=== PATIENT | female | born 2000 | race Caucasian/White ===

== ENCOUNTER 2024-05-19 09:35 | Emergency (ER) | payer OTHER, SELFPAY ==
--- NOTE | ~2024-05-19 | CT_ITS ---
CT brain wo con Ordering provider: Orin Louis PA-C History: 23 years Female with . fall, hi . Comparison: None. Technique: CT of the head without contrast. Radiation reduction technique utilized.The dose-length product was 605.33 mGy-cm 11 6 cm. FINDINGS:: BRAIN PARENCHYMA AND CSF SPACES: No midline shift, mass effect or hemorrhage. The brain parenchyma a nd CSF spaces are otherwise normal. VISUALIZED PARANASAL SINUSES: Mild bilateral ethmoid sinus disease.. MASTOIDS: Well aerated. BONES: The bones appear intact. SOFT TISSUES: Visualized nasopharynx is normal. Superficial soft tissues are normal. IMPRESSION: No acute intracranial findings. Reviewed, dictated and finalized at location A.
--- NOTE | ~2024-05-19 | US_ITS ---
FIRST TRIMESTER ULTRASOUND 05/19/2024 9:56 CDT Ordering provider: Orin Louis PA-C History: . 11 weeks, fall/trauma . Comparison: None. FINDINGS: INTRAUTERINE GESTATIONAL SAC: Present. YOLK SAC: Present. POLE: Present. Measures 4.1 cm which is equivalent to 11 weeks gestational age.. heart rate is 167 bpm. Maternal left placenta is noted. Subchorionic hematoma is seen. IMPRESSION: Single live fetus. pole measures 4.1 cm Gestational age is 11 weeks. heart rate is 167. Subchorionic hematoma is noted. Follow-up advised. Reviewed, dictated and finalized at location A.
[2024-05-19 09:41] VITALS: BP 145/83; PULSE 97; RESP 16; TEMP 36.7; O2SAT 100
--- NOTE | 2024-05-19 10:08 | ED.FALL ---
HPI - Fall General Chief Complaint: Fall Stated Complaint: 11 weeks fell, hit head. No LOC Time Seen by Provider: 05/19/24 09:45 Source: patient Mode of arrival: ambulatory Limitations: no limitations History of Present Illness HPI Narrative: Patient is a 23-year-old female who presents the ED with report of a fall. Patient reports she slipped walking down her stairs this morning in the rain. Fell to her right-side and hit her head. She did not lose consciousness. Attempted to catch herself with her R arm. Reports mild LEAVITT currently. Denies dizziness/LH, nausea, vision changes, neck or back pain, arm pain. Patient is currently 11 weeks gestation. OBGYN is Lupe Pablo with [facility]. states she was referred to the ED for further evaluation to ensure her baby is okay. Patient denies direct abdominal trauma. Denies abdominal pain. Denies vaginal bleeding. Related Data Allergies Allergy/AdvReac Type Severity Reaction Status Date / Time montelukast [From Singulair] Allergy Hives Verified 05/19/24 10:24 Review of Systems Review of Systems: All systems reviewed & are unremarkable except as noted in HPI. All systems reviewed & are unremarkable except as noted in HPI and below Exam Narrative: GENERAL: Well appearing, thin, non-toxic, in no acute distress. HEAD: Normocephalic, atraumatic. NECK: Supple. No significant tenderness throughout midline spine or paraspinal musculature. No palpable deformities. RESPIRATORY: Airway patent, respirations nonlabored. Clear to auscultation bilaterally, no rales, rhonchi, wheezing. CARDIOVASCULAR: Regular rate and rhythm ABDOMINAL: Soft, no appreciable tenderness throughout abdomen, nondistended. Normoactive BS. MUSCULOSKELETAL: Moves all extremities. No gross deformities. No TTP throughout midline lumbar or thoracic spine. No palpable deformities. SKIN: Warm, dry, normal color. NEURO: A&O X3. Speech clear. Cranial nerves II-XII grossly intact. Steady gait. No ataxic movements. PSYCHIATRIC: Appropriate mood and affect. Normal interaction. Course Vital Signs Vital signs: Vital Signs Temperature 98.1 F 05/19/24 09:41 Pulse Rate 97 05/19/24 09:41 Respiratory Rate 16 05/19/24 09:41 Blood Pressure 145/83 H 05/19/24 09:41 Pulse Oximetry 100 05/19/24 09:41 Oxygen Delivery Room Air 05/19/24 09:41 Temperature 97.9 F 05/19/24 10:55 Pulse Rate 69 05/19/24 10:55 Respiratory Rate 17 05/19/24 10:55 Blood Pressure 119/73 05/19/24 10:55 Pulse Oximetry 100 05/19/24 10:55 Oxygen Delivery Room Air 05/19/24 09:41 MDM - Fall MDM Narrative Medical decision making narrative: patient presented to ED status post ground level mechanical fall, head injury. Patient currently 11 weeks gestation. Referred here by OBGYN. Denying abdominal pain or vaginal bleeding. Vital signs are stable. Patient neurologically intact. C-spine cleared by myself in the ED. No neck pain or tenderness whatsoever. CT brain obtained and negative for acute traumatic findings. OB ultrasound was obtained and showing live IUP, consistent with 11 weeks, good heart tones. Does show subchorionic hematoma. Unclear is this has been present prior to today. No previous ultrasounds for comparison. Patient is denying vaginal bleeding. Discussed case with Dr. 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 Patient to follow-up in office. Patient in agreement w/ this plan. Feels comfortable w/ discharge home. She was given return precautions, discussed signs and symptoms of hematoma/reasons to be concerned. Patient voiced understanding. Discharged in stable condition. Medical Records Attestation: I reviewed the patient's medical records. Imaging Data Attestation: I personally reviewed and interpreted this imaging study as follows: Radiologist's impression: ITS Impressions Head CT 05/19/24 10:18 IMPRESSION: No acute intracranial find
[2024-05-19 10:55] VITALS: BP 119/73; PULSE 69; RESP 17; TEMP 36.6; O2SAT 100
== END 2024-05-19 10:57 | disposition home or self-care (01) ==
PROVIDERS: Emergency Provider Physician Assistant; PCP Internal Medicine
DX: O26.891 Other specified pregnancy related conditions, first trimester (principal); S09.90XA Unspecified injury of head, initial encounter; O41.8X10 Other specified disorders of amniotic fluid and membranes, first trimester, not applicable or unspecified; W10.9XXA Fall (on) (from) unspecified stairs and steps, initial encounter; Z3A.11 11 weeks gestation of pregnancy
CPT/HCPCS: 70450; 76816; 99284

== ENCOUNTER 2024-07-11 10:24 | Outpatient (CLI) | payer OTHER, SELFPAY ==
[2024-07-11 10:57] VITALS: BP 107/48; PULSE 83
--- NOTE | 2024-07-11 12:24 | PC.NURSE ---
Called Julissa Pablo CNM with pt admission. Pt complaining of leaking of fluid. ROM plus negative. No fluid noted. FHTs doppled in 140's. Pt states that she feels some lower, constant back pain. She felt cramping yesterday and this am, but nothing currently. May D/C home.
[2024-07-14 10:02] LABS: OBXCEM ROM Plus Negative (Negative)
== END 2024-07-11 11:27 | disposition home or self-care (01) ==
LOC: ANHOBOP 10:33 → ANHOBPP 07-16 07:56
PROVIDERS: Advanced Practice Midwife; PCP Internal Medicine; Visit Provider Obstetrics & Gynecology
DX: O42.90 Premature rupture of membranes, unspecified as to length of time between rupture and onset of labor, unspecified weeks of gestation (principal); Z3A.00 Weeks of gestation of pregnancy not specified
CPT/HCPCS: 84112; 99199

== ENCOUNTER 2024-10-07 06:45 | Observation (INO) | payer MEDICAID, OTHER, SELFPAY ==
[2024-10-07] VITALS (10 sets, daily range): BP systolic 112–122; BP diastolic 49–69; PULSE 85–101; TEMP 37; BMI 24.0
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
--- OUTSIDE RECORDS SUMMARY | 2024-10-07 07:05 | XMS_ITS | Referral Summary ---
Author Organization [facility] Address [address] [place] [address] Care Team Providers Care Video Production Intern Name Role Phone No, Physician Primary Care Provider [phone] Allergies Active Allergy Reactions Criticality Noted Date Comments Montelukast Hives Medium Medications PNV 39-iron obx-xdidx-sdw-dha 30 mg iron-1.2 mg-55 mg-265 mg capsule Take by mouth daily Active budesonide-formote roL (SYMBICORT) 80-4.5 mcg/actuation inhalerIndications :Maintenance Therapy for Asthma Inhale 2 puffs 2 (two) times a day Rinse mouth with water after use. Do not swallow. Active HYDROcodone-acetam inophen (NORCO) 5-325 mg per tabletIndications: Pain Take 1 tablet by mouth every 4 (four) hours as needed for pain 20 tablet 01/08/20 20 Active ibuprofen (ADVIL,MOTRIN) 600 mg tabletIndications: Cramps Take 1 tablet (600 mg total) by mouth every 6 (six) hours as needed for pain 30 tablet 1 01/08/20 20 Active albuterol HFA (PROVENTIL HFA,VENTOLIN HFA,PROAIR HFA) 90 mcg/actuation inhaler Inhale 2 puffs every 4 (four) hours as needed for wheezing or shortness of breath 1 each 10/13/19 22 Active albuterol 5 mg/mL nebulizer solution Take 0.5 mL (2.5 mg total) by nebulization every 6 (six) hours as needed for wheezing 20 mL 10/13/19 22 Active ondansetron ODT (ZOFRAN-ODT) 4 mg disintegrating tablet Take 1 tablet (4 mg total) by mouth every 8 (eight) hours as needed for nausea or vomiting 20 tablet 10/13/19 22 Active Active Problems Problem Noted Date Diagnosed Date Sprain of wrist 12/09/2014 Overview (12/07/2016): Wrist sprain Social History Tobacco Use Types Packs/Day Years Used Date Smoking Tobacco: Some Days Cigarettes 0.2 3 Smokeless Tobacco: Never Tobacco Cessation:Ready to Q uit: Yes; Counseling Given: Yes Alcohol Use Standard Drinks/Week Comments Not Currently 0 (1 standard drink = 0.6 oz pur e alcohol) AUDIT-C Answer Date Recorded Frequency of Alcohol Consumption Never 10/13/2019 Average Number of Drinks Not on file 020 Frequency of Binge Drinking Not on file 09/27 Comments Unknown Sex and Gender Information Value Date Recorded Sex Assigned at Not on file Legal Sex Female 3:37 AM RENTAL COUNTER CLERK Gender Identity Not on file Sexual Orientation Not on file Last Filed Vital Signs Vital Sign Reading Time Taken Comments Blood Pressure 115/71 12/18/2022 6:49 AM CDT Pulse 74 12/18/2022 6:49 AM CDT Temperature 36.1 C (97 F) 12/18/2022 6:49 AM CDT Respiratory Rate 18 12/18/2022 6:49 AM CDT Oxygen Saturation 100% 12/18/2022 6:49 AM CDT Inhaled Oxygen Concentration - - Weight 49.9 kg (110 lb) 12/18/2022 6:49 AM CDT Height 157.5 cm (5' 2 ) 08/24/2022 2:31 PM RENTAL COUNTER CLERK Body Mass Index 20.12 08/24/2022 2:31 PM RENTAL COUNTER CLERK Plan of Treatment Not on file Insurance [facility] Advance Directives For more information, please contact: [phone] * Full Code (Latest Code Status on File) Date Activated Date Inactivated Comments 01/06/2020 4:57 PM 01/08/2020 4:27 PM * Full Code Date Activated Date Inactivated Comments 01/06/2020 8:29 AM 01/06/2020 4:56 PM Full CPR in case of cardiopulmonary arrest Care Teams Video Production Intern Relationship Specialty Start Date End Date No, Physician PCP - General 10/24/19
--- OUTSIDE RECORDS SUMMARY | 2024-10-07 07:05 | XMS_ITS | Clinical Summary ---
Author Organization [facility] Address [address] [place] [address] Care Team Providers Care Therapy Site Coordinator Name Role Phone No, Physician Primary Care Provider [phone] Allergies Active Allergy Reactions Criticality Noted Date Comments Montelukast Hives Medium Medications PNV 39-iron [id number]-[id number]-rhe-[id number] 30 mg iron-1.2 mg-55 mg-265 mg capsule [...] of wrist 12/09/2014 Overview (12/07/2016): Wrist sprain Medical History Medical History Date Comments Asthma Asthma Mental disorder anxiety Lung disease asthma Family History Medical History Relation Name Comments Cancer Other 1 Family history of cancer; Diabetes Other 2 Family history of diabetes; Hypertension Other 3 Family history of Hypertension; Mental illness Other 4 Family histor y of Mental illness; Arthritis Other 5 Family history of arthritis; Relation Name Status Comments Other 1 Other 2 Other 3 Other 4 Other 5 Social History Tobacco Use Types Packs/Day Years [...] on file Legal Sex Female 3:37 AM CLASSIFIED AD CLERK Gender Identity Not on file Sexual Orientation Not on file Obstetrics History Para Term AB IAB SAB Ectopic Multiple Livin g Live Births 1 1 1 0 1 1 Date Outcome GA Total Labor Labor/2nd/3rd Weight Sex Type Anes PTL Jennifer A1 A5 Name Clin 2019 Term 39w 4d 4h 23m 3h 00m/1h 10m/0h 13m 3.115 kg (6 lb 13.9 oz) M Vag-S pont Epidur al N Livin g 7 8 Courtney CLAROS Geoffr ey Lowell, MD Complications:None Delivery Location:This Facil ity ([facility] Last Filed Vital Signs Vital Sign Reading [...] cm (5' 2 ) 08/24/2022 2:31 PM CLASSIFIED AD CLERK Body Mass Index 20.12 08/24/2022 2:31 PM CLASSIFIED AD CLERK Plan of Treatment Health Maintenance Due Date Last Done Comments Cervical Cancer Screening 2001 Chlamydia and Gonorrhea (GC/ CT) Screening 2001 Depression Screening 2001 Hepatitis C Screening 2001 Pneumococcal vaccine <65 (1 of 1 - PPSV23 or PCV20) 2007 06/10/2003, 06/10/2003, 04/18/2002, Additional history exists Meningococcal B Vaccine (1 o f 2 - Patient Seeks Protection) 2017 Regular Well Visit/Exam 18-64 2019 Influenza Vaccine (#1) 2024 DTaP/Tdap/Td Vaccine (9 - Td or Tdap) 12/18/2029 12/19/2019, 10/09/2013, 02/06/2013, Additional history exists Hepatitis B Screening Completed 06/10/2003 , 06/10/2003, 02/15/2002, Additional history exists HPV Vaccines Completed 10/09/2013, 06/27, 02/06/2013 Varicella Vaccines Completed 10/09/2013, 04/20/[address] [place] [address] [place] [address] [facility] Advance Directives For more information, please contact: [phone] * Full Code (Latest Code Status on File) Date Activated Date Inactivated Comments 01/06/2020 4:57 PM 01/08/2020 4:27 PM * Full Code Date Activated Date Inactivated Comments 01/06/2020 8:29 AM 01/06/2020 4:56 PM Full CPR in case of cardiopulmonary arrest Care Teams Therapy Site Coordinator Relationship Specialty Start Date End Date No, Physician PCP - General 10/24/19
--- OUTSIDE RECORDS SUMMARY | 2024-10-07 07:06 | XMS_ITS | Patient Health Summary ---
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 the cervical spine without contrast HISTORY: Trauma TECHNIQUE: CT of the head, cervical spine, and maxillofacial bones, orbits, and paranasal sinuses was performed without contrast according to standard protocol. COMPARISON: None FINDINGS: Head: No acute intra- or extra-axial fluid collections are identified. The ventricles are of normal size, shape, and morphology. The basilar cisterns are patent. No mass effect or midline shift is seen. The horner-white matter differentiation is normal. No acute calvarial fracture is identified. Maxillofacial: The orbits appear normal. There is mild paranasal sinus disease. The hard palate, mandible, and temporomandibular joints appear normal. No acute facial bone fractures are identified. The mastoid air cells are clear. Mild soft tissue edema overlying the left parietal scalp. Cervical spine: The alignment is normal. Vertebral bodies are normal in height without evidence of acute fracture. There is an acute, nondisplaced fracture of the left posterior second rib. The craniocervical junction is normal. The intervertebral discs appear normal. No central canal stenosis is seen. The facets appear normal. The uncovertebral joints appear normal. No neural foraminal stenosis is seen. No soft tissue abnormality is identified. Procedure Note Shayne Dixon MD - 05/17/2023 CT HEAD WO CONTRAST, CT FACIAL BONES WO CONTRAST, CT CERVICAL SPINE WO CONTRAST DATE: 05/16/2023 11:46 PM EXAMINATION: 1. Computed tomography (CT) of the head without contrast 2. CT of the maxillofacial bones, orbits, and paranasal sinuses without contrast 3. CT of the cervical spine without contrast HISTORY: Trauma TECHNIQUE: CT of the head, cervical spine, and maxillofacial bones,orbits, and paranasal sinuses was performed without contrast according tostandard protocol. COMPARISON: None FINDINGS: Head: No acute intra- or extra-axial fluid collections are identified. The ventricles are of normal size, shape, and morphology. The basilarcisterns are patent. No mass effect or midline shift is seen. The horner-whitematter differentiation is normal. No acute calvarial fracture is identified. Maxillofacial: The orbits appear normal. There is mild paranasal sinus disease. Thehard palate, mandible, and temporomandibular joints appear normal. No acute facial bone fractures are identified. The mastoid air cells are clear.Mild soft tissue edema overlying the left parietal scalp. Cervical spine: The alignment is normal. Vertebral bodies are normal in height without evidence of acute fracture. There is an acute, nondisplaced fracture ofthe left posterior second rib. The craniocervical junction is normal. The intervertebral discs appear normal. No central canal stenosis is seen.The facets appear normal. The uncovertebral joints appear normal. No neural foraminal stenosis is seen. No soft tissue abnormality is identified. IMPRESSION: 1.No acute intracranial process. 2.Soft tissue swelling over the left parietal scalp without evidence of underlying calvarial fracture. 3.No acute facial bone fractures identified. 4.Acute, nondisplaced fracture of the left posterior second rib. 5.No evidence of acute fracture in the cervical spine. Report dictated by Roque Urbina M.D. (vice president compliance) 05/17/2023 12:23 AM Shayne Liu MD have personally reviewed and interpreted this examination/study. > Interpreting Provider: Shayne Dixon MD on 05/17/2023 12:26 AM Bernabe Brandon MD CT ORDERABLES * XR PELVIS 1 OR 2VW (05/16/2023 11:14 PM CDT) Anatomical Region Laterality Modality Pelvis Radiographic Paulina ging 05/16/2023 11:0 7 PM CDT Impressions 05/16/2023 11:37 PM CDT IMPRESSION: No acute fracture identified. Report dictated by Roque Urbina MD (vice president compliance). Rui Liu MD have personally reviewed and interpreted this examination/study. > Interpreting Provider: Rui Quarles MD on 05/16/2023 11:37 PM Narrative 05/16/2023 11:37 PM CDT PROCEDURE: XR PELVIS 1 OR 2VW, DATE/TIME OF EXAM: 05/16/2023 11:03 PM, LOCATION [facility] INDICATION: Trauma Fracture suspected COMPARISON: None. FINDINGS: No acute fracture is identified. The femoral heads appear well-seated within their respective acetabula. The pubic symphysis is intact. Bone density and texture are normal. The sacroiliac joints are normal. Procedure Note Rui Quarles MD - 05/16/2023 PROCEDURE: XR PELVIS 1 OR 2VW, DATE/TIME OF EXAM: 05/16/2023 11:03 PM, LOCATION [facility] INDICATION: Trauma Fracture suspected COMPARISON: None. FINDINGS: No acute fracture is identified. The femoral heads appear well-seated within their respective acetabula. The pubic symphysis is intact. Bone density and texture are normal. The sacroiliac joints are normal. IMPRESSION: No acute fracture identified. Report dictated by Roque Urbina MD (vice president compliance). Rui Liu MD have personally reviewed and interpreted this examination/study. > Interpreting Provider: Rui Quarles MD on 05/16/2023 11:37 PM Bernabe Brandon MD DIAGNOSTIC IMAGING O RDERABLES * XR CHEST 1VW PORTABLE (05/16/2023 11:14 PM CDT) Anatomical Region Laterality Modality Chest Radiographic Paulina ging 05/16/2023 11:0 6 PM CDT Impressions 05/16/2023 11:37 PM CDT IMPRESSION: No acute pulmonary process. Report dictated by Roque Urbina MD (vice president compliance). Rui Liu MD have personally reviewed and interpreted this examination/study. > Interpreting Provider: Rui Quarles MD on 05/16/2023 11:37 PM Narrative 05/16/2023 11:37 PM CDT PROCEDURE: XR CHEST 1VW PORTABLE, DATE/TIME OF EXAM: 05/16/2023 10:59 PM, LOCATION [facility] INDICATION: Trauma COMPARISON: None. TECHNIQUE: Frontal radiograph of the chest. FINDINGS: There is no focal consolidation, pleural effusion, or pneumothorax. The cardiomediastinal silhouette is normal. The visible bony thorax is intact. Procedure Note Rui Quarles MD - 05/16/2023 PROCEDURE: XR CHEST 1VW PORTABLE, DATE/TIME OF EXAM: 05/16/2023 10:59PM, LOCATION [facility] INDICATION: Trauma COMPARISON: None. TECHNIQUE: Frontal radiograph of the chest. FINDINGS: There is no focal consolidation, pleural effusion, or pneumothorax. The cardiomediastinal silhouette is normal. The visible bony thorax is intact. IMPRESSION: No acute pulmonary process. Report dictated by Roque Urbina MD (vice president compliance). IRui MD have personally reviewed and interpreted this examination/study. > Interpreting Provider: Rui Quarles MD on 05/16/2023 11:37 PM Bernabe Brandon MD DIAGNOSTIC IMAGING O RDERABLES * PT-INR [facility] (05/16/2023 11:01 PM CDT) PT 13.2 12.1 - 14.8 Seconds 05/16/2023 11:33 PM CDT [facility] INR 1.0 See Comment 05/16/2023 11:33 PM CDT [facility] Comment:The suggested therap eutic range for standard coumadin (warfarin) therapy is an INR of 2.0-3.0. For high-risk patients (Mechanical Mitral Valve Prosthesis, etc.), the suggested prophylactic therapeutic range is an INR of 2.5-3.5. Blood BLOOD SPECIMEN / Unknown Venipuncture / Unknown 05/16/2023 11:01 PM CDT 05/16/2023 11:11 PM CDT Bernabe Brandon MD LAB - COAGULATION OR DERABLES [facility] [address] [place] [address], [facility] [phone] * TYPE + SCREEN PANEL (05/16/2023 11:01 PM CDT) Antibody Screen NEG 12:25 AM CDT [facility] ABO Rh A POS 05/17/2023 12:25 AM CDT [facility] Blood Bank BLOOD SPECIMEN / Unknown Venipuncture / Unknown 05/16/2023 11:01 PM CDT 05/16/2023 11:37 PM CDT Bernabe Brandon MD LAB - BLOOD BANK ORD ERABLES [facility] [address] [place] [address], [facility] [phone] * (ABNORMAL) DIFFERENTIAL MANUAL (05/16/2023 11:01 PM CDT) Pathologist [facility] WBC (corrected for NRBC) 13.3 10 3/uL 05/17/2023 12:58 AM [facility] Total Cell Count 100 05/17/20 12:58 AM [facility] Neutrophils Absolute Manual 7.18(H) 1.60 - 7.00 10 3/uL 05/17/2023 12:58 AM [facility] Comment:(BANDS+SEGS) x WBC = NEUT # (ANC) Lymphocyte Absolute Manual 4.66(H) 1.10 - 3.90 10 3/uL 05/17/2023 12:58 AM [facility] Monocytes Absolute Manual 0.80 0.26 - 1.07 10 3/uL 05/17/2023 12:58 AM [facility] Eosinophils Absolute Manual 0.27 0.00 - 0.47 10 3/uL 05/17/2023 12:58 AM [facility] Basophil Absolute Manual 0.27(H) 0.00 - 0.08 10 3/uL 05/17/2023 12:58 AM [facility] Band % Manual 1 0 - 10 % 05/17/2023 12:58 AM [facility] Neutrophil % Manual 53 35 - 70 % 05/17/2023 12:58 AM CDT [facility] Lymphocyte % Manual 35 20 - 43 % 05/17/2023 12:58 AM T [facility] Monocytes % Manual 6 5 - 13 % 05/17/2023 12:58 AM [facility] Eosinophils % Manual 2 0 - 6 % 05/17/2023 12:58 AM [facility] Basophils % Manual 2 0 - 2 % 05/17/2023 12:58 AM [facility] Atypical Lymphocyte % Manual 1(H) 0 % 05/17/2023 12:58 AM [facility] Platelet Estimate Adequate Adequate 05/17/2023 12:58 AM [facility] Anisocytosis Occasional( A) None 05/17/2023 12:58 AM [facility] Ovalocytes Occasional( A) None 05/17/2023 12:58 AM [facility] Angel Luis Cells Occasional( A) None 05/17/2023 12:58 AM [facility] Blood BLOOD SPECIMEN / Unknown Venipuncture / Unknown 05/16/2023 11:01 PM CDT 05/16/2023 11:11 PM CDT Bernabe Brandon MD LAB - HEMATOLOGY ORD ERABLES [facility] [address] [place] [address], [facility] [phone] * HCG BETA BLOOD QUANTITATIVE (05/16/2023 11:01 PM CDT) Beta-hCG Total Quantitative <3 mIU/mL 05/16/2023 11:49 PM T [facility] Comment: HCG Numeric Result Interpretation: Non- Females: < 5 mIU/mL Post-Menopausal Females: < 7 mIU/mL This assay is cleared for use in the early detection of only. It is not approved for any other uses such as tumor marker screening, tumor marker monitoring, etc. and should not be used for any other purposes. Blood BLOOD SPECIMEN / Unknown Venipuncture / Unknown 05/16/2023 11:01 PM CDT 05/16/2023 11:11 PM CDT Bernabe Brandon MD LAB - CHEMISTRY TALHA ALMENDAREZ Performing Organization Address [facility] Co de Phone Number [address] [address], [facility] [phone] * (ABNORMAL) ALCOHOL ETHYL BLOOD (05/16/2023 11:01 PM CDT) Ethanol (mg/dL) 163(H) <10 mg/dL 11:40 PM CDT [facility] Ethanol Calculated (g/dL) 0.163(H) <=0.010 g/dL 05/16/2023 11:40 PM CDT [facility] Blood BLOOD SPECIMEN / Unknown Venipuncture / Unknown 05/16/2023 11:01 PM CDT 05/16/2023 11:11 PM CDT Narrative [facility] - 05/16/2023 11:40 PM CDT Ethanol Interp <10: None Detected. Depression of BAKING POWDER MIXER: >100 mg/dl Potentially Critical: >250 mg/dl Potentially Fatal >400 mg/dl Ethanol in the patient's blood will contribute to the osmolar gap. Ethanol's contribution to the osmolar gap can be estimated by dividing the concentration of ethanol in mg/dL by 4.6. This test is for clinical use only and does not equal a YEISON for legal purposes. Bernabe Brandon MD LAB - CHEMISTRY TALHA ALMENDAREZ Performing Organization Address [facility] Co de Phone Number [address] [address], [facility] [phone] * (ABNORMAL) CULTURE ABSCESS+GRAM STAIN (12/04/2017 12:20 AM CDT) Culture Moderate Streptococcus pyogenes (Group A)(A) AVRIL 12/06/2017 6:28 AM CDT [facility] Gram Stain Heavy White blood cells 12/06/2017 6:28 AM CDT [facility] Gram Stain Moderate Gram-positive cocci pairs and chains 12/06/2017 6:28 AM CDT [facility] Microbiology SPECIMEN FROM ABSCESS / Unknown Collection / Unknown 12/04/2017 12:20 AM CDT 12/04/2017 12:22 AM CDT Narrative [facility] - 12/06/2017 6:28 AM CDT Contact Precautions Required. Susceptibility testing of penicillin, other beta-lactam antibiotics, and vancomycin is not necessary for beta-hemolytic streptococci groups A,B,C and G because resistant strains have not been recognized. Kaylah Balderrama MD LAB - MICROBIOLOGY ORDERABLES Performing Organization Address City/[facility]/ZIP Co de Phone Number [facility] [address] [place], [place] [address] [phone] * (ABNORMAL) STREP A SCREEN DIRECT W RFLX STREP A CULTURE (12/03/2017 10:07 PM CDT) Only the most recent of3 resultswithin the time period is included. Strep A Rapid Positive(A ) Negative 12/03/2017 10:27 PM CDT [facility] Microbiology ENTIRE THROAT (SURFACE REGION OF NECK) / Unknown Collection / Unknown 12/03/2017 10:07 PM CDT 12/03/2017 10:17 PM CDT Shaheen York MD LAB - MICROBIOLOGY O LIZ Performing Organization Address City/[facility]/ZIP Co de Phone Number [facility] [address] [place] [phone] * XR KNEE 1 OR 2 VW LEFT (10/22/2017 3:22 AM SENIOR SUPPLY CHAIN ANALYST) Anatomical Region Laterality Modality Lower Extremity Radiographic Paulina ging 10/22/2017 7:21 AM SENIOR SUPPLY CHAIN ANALYST Impressions 10/22/2017 7:22 AM SENIOR SUPPLY CHAIN ANALYST Normal. Narrative 10/22/2017 7:22 AM SENIOR SUPPLY CHAIN ANALYST Left knee AP and lateral HISTORY: Fall The bones, soft tissues, and joint spaces are normal. Procedure Note Marisa Flower MD - 10/22/2017 Left knee AP and lateral HISTORY: Fall The bones, soft tissues, and joint spaces are normal. IMPRESSION Normal. Nikunj Rutledge MD DIAGNOSTIC IMAGING O LIZ * HCG URINE QUALITATIVE - POCT (IP) BEAKER (10/22/2017 3:11 AM SENIOR SUPPLY CHAIN ANALYST) HCG Qual Urine Negative Negative [facility] POCT TESTING QC Verified Yes Yes [facility] PO CT TESTING Urine URINE / Unknown 10/22/2017 3 :11 AM SENIOR SUPPLY CHAIN ANALYST Nikunj Rutledge MD LAB - POINT OF CARE ORDERABLES Performing Organization Address [facility]/ZIP Co de Phone Number [facility] POCT TESTING [address] [place] [address], [facility] [phone] * CULTURE STREP GROUP A (05/28/2017 5:14 PM CDT) Culture Negative for beta-hemolytic Streptococcus Group A AVRIL 05/30/2017 6:24 AM CDT [facility] Microbiology ENTIRE THROAT (SURFACE REGION OF NECK) / Unknown Collection / Unknown 05/28/2017 5:14 PM CDT 05/28/2017 5:17 PM CDT Madisyn Ames APRN-TACTICAL AIR CONTROL PARTY MANAGER LAB - MICROBIOLOGY ORDERABLES Performing Organization Address City/[facility] Co de Phone Number [facility] [address] [place] [address], [facility] [phone] * XR HAND 3+ VW LEFT (10/12/2016 2:10 PM SENIOR SUPPLY CHAIN ANALYST) Anatomical Region Laterality Modality Wrist / Hand Radiographic Paulina ging 10/12/2016 3:05 PM SENIOR SUPPLY CHAIN ANALYST Impressions 10/12/2016 3:07 PM SENIOR SUPPLY CHAIN ANALYST No recent fracture or other abnormality of the left hand identified. Narrative 10/12/2016 3:07 PM SENIOR SUPPLY CHAIN ANALYST Left hand: History: Fall, injury with left hand pain, attention 3rd and 4th digits. Technique: Three views of the left hand were obtained on 10/12/2016. No relevant prior study is available. Findings: No recent fracture, dislocation or bone destruction is seen. Procedure Note Cleveland Henderson MD - 10/12/2016 Left hand: History: Fall, injury with left hand pain, attention 3rd and 4th digits. Technique: Three views of the left hand were obtained on 10/12/2016. No relevant prior study is available. Findings: No recent fracture, dislocation or bone destruction is seen. IMPRESSION No recent fracture or other abnormality of the left hand identified. Eric Scanlon PA-C DIAGNOSTIC IM AGING ORDERABLES Care Teams Sport Intern Relationship Specialty Start Date End Date Jolly Madrigal, INVESTMENT ADVISOR-TACTICAL AIR CONTROL PARTY MANAGER [address] [place] [address] PCP - General 06/05/24 Shaheen Ching MD [address] [place] [address] 06/05/24
--- OUTSIDE RECORDS SUMMARY | 2024-10-07 07:06 | XMS_ITS | Clinical Summary ---
Author Organization [facility] [employer] Address [address] [facility] [place] [address] Care Team Providers Care Supervisor Paper Machine Name Role Phone [employer] Jolly Luna RN VISITING-GROUND CREWMAN Primary Care Provi tristen Shaheen Ching MD Unavailable Source Comments [facility],non-owned Affiliates and Associated Physician Practices is amultiple site organization consisting of ambulatory clinics and hospital sitesin [place], [place] and [place]. This disclosure is being madepursuant to the Care Everywhere program and may not contain all information available regarding this patient. Last updated 18.[facility] Allergies Active Allergy Reactions Criticality Noted Date [...] per patient. She follows with psychiatrist @ [facility] every 2-3 months. This provider prescribes [...] on last me nstrual period of 03/04/2024 Encounters Date Type Department Care Team Description 09/30/2024 12:00 PM BILINGUAL TEACHER visit [facility] - assembly machine tender [address] [place] [address] Nereida Richey MD GA: [id number] 09/30/2024 8:40 AM BILINGUAL TEACHER Ancillary Procedure [facility] - CHAINSTITCH SEWING MACHINE OPERATOR [address] [place] [phone] Encounter for ultrasound to check growth (HCC) 09/30/2024 Travel 09/12/2024 Telephone [facility] - CHAINSTITCH SEWING MACHINE OPERATOR [address] [place] [phone] Marcelle Peck RN Establish Care 09/09/2024 10:30 AM BILINGUAL TEACHER - 09/09/2024 11:59 PM BILINGUAL TEACHER Hospital Encounter [facility] [address] [id number] Anyi Mercado MD Grant, Jacqueline H, MD CHAINSTITCH SEWING MACHINE OPERATOR Discharge Disposition: Home or Self Care 08/12/2024 9:40 AM BILINGUAL TEACHER - 08/12/2024 11:59 PM BILINGUAL TEACHER Hospital Encounter [facility] [address] [place] [address] Won Thompson MD Discharge Disposition: Home or Self Care 07/15/2024 9:37 AM BILINGUAL TEACHER - 07/15/2024 11:59 PM BILINGUAL TEACHER Hospital Encounter [facility] [address] [place] [address] MD Discharge Disposition: Home or Self Care from Last 3 Months Immunizations Name Administration Dates Next Due TDAP (7yrs+) 09/30/2024,05/17/2023,12/19/2019 Family History Medical History Relation Name Comments Anxiety Disorder Father Anxiety Disorder Maternal Grandmother Anxiety Disorder Mother Bipolar Disorder Mother Relation Name Status Comments Brother Alive Father Alive Maternal Grandmother Mother Alive Sister Alive Social History Tobacco Use Types Packs/Day Years [...] Comments Blood Pressure 104/50 09/30/2024 12:22 PM BILINGUAL TEACHER Pulse 89 06/18/2024 2:03 PM CDT Temperature 36.8 C (98.2 F) 06/08/2023 8:10 PM CDT Respiratory Rate 20 06/13/2023 3:24 PM CDT Oxygen Saturation 100% 06/13/2023 3:24 PM CDT Inhaled Oxygen Concentration - - Weight 59.7 kg (131 lb 9.6 oz) 09/30/2024 12:22 PM BILINGUAL TEACHER Height 157.5 cm (5' 2 ) 09/30/2024 12:22 PM BILINGUAL TEACHER Body Mass Index 24.07 09/30/2024 12:22 PM BILINGUAL TEACHER Plan of Treatment Upcoming Encounters Date Type Department Care Team (Late st Contact Info) Description 10/09/2024 8:45 AM BILINGUAL TEACHER Hospital Encounter [facility] at [address] [address] 10/09/2024 10:00 AM BILINGUAL TEACHER Hospital Encounter [facility] at [address] [address] 10/17/2024 1:40 PM BILINGUAL TEACHER visit [facility] - assembly machine tender [address] [place] [address] [address] [place] [address] Nereida Richey MD [address] [place] [address] [place] [phone] 10/30/2024 9:20 AM BILINGUAL TEACHER Ancillary Procedure [facility] - CHAINSTITCH SEWING MACHINE OPERATOR [address] [place] [address] 10/30/2024 1:20 PM BILINGUAL TEACHER visit [facility] - CHAINSTITCH SEWING MACHINE OPERATOR [address] [place] [address] Nereida Richey MD [address] [place] [address] [address] [place] [phone] 11/07/2024 10:20 AM CDT visit [facility] - assembly machine tender [address] [place] [address] [address] [place] [phone] Nereida Richey MD [address] [place] [address] [place] [phone] 11/12/2024 3:00 PM CDT visit [facility] - CHAINSTITCH SEWING MACHINE OPERATOR [address] [place] [phone] Deandre Shira RN VISITING-GROUND CREWMAN [address] [facility] [place] [address] 11/27/2024 1:40 PM CDT visit [facility] - CHAINSTITCH SEWING MACHINE OPERATOR [address] [place] [phone] Nasrin Ponce, RN VISITING-GROUND CREWMAN [address] [facility] [place] [address] 12/04/2024 6:00 AM CDT [facility] [address] [place], [place] [phone] Nereida Richey MD [address] [place] [address] [place] [address] 12/04/2024 2:00 PM CDT visit [facility] - CHAINSTITCH SEWING MACHINE OPERATOR [address] [place] [phone] Nereida Richey MD [address] [place] [address] [place] [address] 12/09/2024 3:00 PM CDT visit [facility] - assembly machine tender [address] [place] [address] [address] [place] [address] Nereida Richey MD [address] [place] [address] [address] [place] [address] 01/20/2025 2:20 PM CDT Office Visit [facility] - assembly machine tender [address] [place] [address] [address] [place] [address] Nereida Richey MD [address] [place] [address] [address] [place] [address] Health Maintenance Due Date Last Done Comments HIV SCREENING 2016 HPV VACCINE (1 - 3-dose series) 2016 MENINGOCOCCAL (Group B) VACCINE (1 of 2 - Standard) 2017 HEPATITIS C SCREENING 08/26/2019 HEPATITIS B VACCINE (1 of 3 - 19+ 3-dose series) 2020 COVID-19 VACCINE (1 - 2023-2 5 season) 2024 INFLUENZA VACCINE (#1) 2024 CHLAMYDIA/GONORRHEA SCREENING 09/30/2025 09/30/2024 PAP SMEAR 05/07/2027 05/07/2024 DTAP/TDAP/TD VACCINES (4 - T d or Tdap) 09/30/2034 09/30/2024, 05/17/2023, 12/19/2019 ZOSTER VACCINE (1 of 2) 2051 OB-ONE HOUR GLUCOSE Completed 09/16/2024 OB-TDAP CURRENT Completed 2024, 05/17/2023, 12/19/2019 HIB VACCINE Aged Out No longer eligi ble based on patient's age to complete this topic MENINGOCOCCAL VACCINE Aged Out No charu garima eligible based on patient's age to complete this topic PNEUMOCOCCAL VACCINE Aged Out No long er eligible based on patient's age to complete this topic Respiratory Syncytial Virus (RSV) Vaccine Pt: or over 60 yrs (No Doses Required) Completed Procedures Procedure Name Priority Date/Time Associated Diagnosis Comments CULTURE URINE Routine 09/30/2024 5:25 PM BILINGUAL TEACHER Leukocytes in urine CHLAMYDIA + GC + TRICH DNA AMPL Routine 09/30/2024 1:32 PM BILINGUAL TEACHER Encounter for supervision of other normal , third trimester (HCC) SONOGRAM - COMPLETE Routine 09/30/2024 9 :19 AM BILINGUAL TEACHER Encounter for ultrasound to check growth (HCC) SONOGRAM - COMPLETE Routine 09/09/2024 1 0:40 AM BILINGUAL TEACHER Bipolar disease during , antepartum (HCC) Encounter for ultrasound to assess growth ([facility]) 27 weeks gestation of ([facility]) SONOGRAM - COMPLETE Routine 08/12/2024 9 :46 AM BILINGUAL TEACHER Bipolar disease during in second trimester ([facility]) 23 weeks gestation of ([facility]) Encounter for follow-up ultrasound of anatomy ([facility]) Encounter for ultrasound to assess growth ([facility]) SONOGRAM - COMPLETE Routine 07/15/2024 9 :38 AM BILINGUAL TEACHER 19 weeks gestation of ([facility]) Medication exposure during first trimester of ([facility]) Encounter for anatomic survey ([facility]) from Last 3 Months Results * CULTURE URINE (09/30/2024 5:25 PM BILINGUAL TEACHER) Pathologist [facility] Urine Culture Routine Final report [facility] ACCOUNT BILL Comment: Performed at: - [facility] [id number] [employer] Park [employer] Mechanic: Puneet Aldrich PhD, Phone: [phone] Result 1 Comment [facility] ACCOUNT BILL Comment: Mixed urogenital richard Less than 10,000 colonies/mL Urine URINE SPECIMEN OBTAINED BY CLEAN CATCH PROCEDURE / Unknown 09/30/2024 5:25 PM BILINGUAL TEACHER 09/30/2024 Comment:Urine - clean catch R Narrative [facility] ACCOUNT BILL - 10/02/2024 6:10 AM BILINGUAL TEACHER Performed at: - [facility] [id number] [employer] Mechanic: Puneet Aldrich PhD, Phone: [phone] Nereida Richey MD LAB - MICROBIOLOGY O RDERABLES [facility] ACCOUNT BILL [address] [place] [address] * CHLAMYDIA + GC + TRICH DNA AMPL (09/30/2024 1:32 PM BILINGUAL TEACHER) Chlamydia trachomatis ASHU Negative Negative [facility] INSURANCE BILL GC DNA Probe Negative Negative [facility] INSURANCE BILL Trichomonas vaginalis by ASHU Negative Negative [facility] INSURANCE BILL Microbiology URINE / Unknown 09/30/2024 1 :32 PM BILINGUAL TEACHER 09/30/2024 Comment:Urine Release to pat i Narrative [facility] INSURANCE BILL - 10/02/2024 6:10 AM BILINGUAL TEACHER Performed at: [address] [place] [id number] [employer] Park Ride Mechanic: Maddi Fink MD, Phone: [phone] Nereida Richey MD LAB - MICROBIOLOGY O RDERAMICHAEL [facility] INSURANCE BILL [address] [place] [address] * SONOGRAM - COMPLETE (09/30/2024 9:19 AM BILINGUAL TEACHER) Only the most recent of4 resultswithin the time period is included. 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 Para 1 [id number] 1. live 2019. Gest. age 41 w [...] 3 lb 4 oz EFW by Hadlock ([id number]) Growth Overview Exam date GA BPD (mm) [...] up as clinically indicated Coding ====== Procedures 23731: US [facility] Laterality Modality Ultrasound 09/30/2024 8:49 AM BILINGUAL TEACHER Nereida Richey MD [facility] ORDERABLES from Last 3 Months Care Teams Supervisor Paper Machine Relationship Specialty Start Date End Date Jolly Madrigal, RN VISITING-GROUND CREWMAN [address] OF [facility] [place] [phone] PCP - General 06/05/24 Shaheen Ching MD [address] [place] [address] 06/05/24
--- NOTE | 2024-10-07 07:44 | OBADM ---
This patient, Elle Garcia, admitted to the OB room OB Post 116 for observation. Patient/family oriented to hospital policies and general routines including ID bracelet, bed and alarms, visiting hours, pain management, procedures, bathroom and other care routines, personal items, smoking policy, room service/diet, and visiting hours. Patient/Family are encouraged to report perceived risks to care and to ask questions if they do not understand what they are told or what they should do.
--- NOTE | 2024-10-11 09:09 | PM.IMHP ---
H&P: HPI History of Present Illness Date/Time: 10/11/24 09:09 Chief Complaint: vaginal bleeding Narrative: Patient is a 24 year old at 31 weeks gestation who presents for vaginal bleeding. She reports intercourse last night, no other abdominal trauma. She woke this morning and had a small amount of bleeding on the toilet paper and in the toilet. No leakage of fluid. No strong contractions, but does report some mild cramping. Good movement. When she presented to the hospital, she had no active bleeding seen externally, however when she went to the bathroom, she had some blood dripping into the toilet. has been overall uncomplicated, no placenta previa or other placental anomalies Review of Systems Review of Systems: All systems reviewed & are unremarkable except as noted in HPI and below Meds Home Medications and Allergies Home Medications ?Medication ?Instructions ?Recorded ?Confirmed ?Type doxylamine succinate 25 mg tablet 12.5 mg PO ONCE 10/07/24 10/07/24 History (Nighttime Sleep-Aid (doxylamine)) lamotrigine 150 mg tablet 150 mg PO DAILY 10/07/24 10/07/24 History (Lamictal) vits no.130-ferrous fum 1 tablet PO DAILY 10/07/24 10/07/24 History 27 mg iron-folic acid 800 mcg tablet ( Vitamin) Allergies Allergy/AdvReac Type Severity Reaction Status Date / Time montelukast (From Singulair) Allergy Hives Verified 05/19/24 10:24 Exam Const: General: comfortable and no acute distress Resp: Effort & Inspection: normal respiratory effort Cardio: Rate: regular rate GI: GI Palp: Yes Soft to palpation and No Tenderness to palpation present (GI) : External Female Exam: normal external appearance Other: SVE: small clot at external os, no active bleeding; no vaginal lesions; no abnormal discharge; cervix visually closed Extrem: General: normal to inspection Psych: Mental Status: mental status grossly normal Assessment and Plan Assessment and plan (1) Vaginal bleeding during : Code(s): O46.90 - Antepartum hemorrhage, unspecified, unspecified trimester Status: Acute Assessment and Plan: - likely postcoital - no active bleeding on exam - VSS, afebrile - NST reactive for gestational age - no contractions on toco - patient reports improvement in cramping since being in triage - will monitor for 1 hour; if no further bleeding, ok for discharge - rtc as scheduled
--- NOTE | 2024-10-14 14:55 | PM.OBTRLD ---
OB - Triage/Final Diagnosis Visit Information Comments/Additional reasons for admission: I have assessed the risk for this patient, Elle Garcia, and determined that she would benefit from observation care. Final Diagnosis (1) Vaginal bleeding during : Code(s): O46.90 - Antepartum hemorrhage, unspecified, unspecified trimester Status: Acute
== END 2024-10-07 10:30 | disposition home or self-care (01) ==
PROVIDERS: Admitting Provider Obstetrics & Gynecology; PCP Internal Medicine; Referring Provider Advanced Practice Midwife; Visit Provider Obstetrics & Gynecology
DX: O46.93 Antepartum hemorrhage, unspecified, third trimester (principal); Z3A.31 31 weeks gestation of pregnancy
CPT/HCPCS: G0378; G0379